=== PATIENT | male | born 1970 | race Caucasian/White ===

== ENCOUNTER 2025-08-30 22:43 | Emergency (ER) | payer OTHER, SELFPAY ==
--- NOTE | ~2025-08-30 | XR_ITS ---
EXAMINATION: XR chest 2V DATE: 08/30/2025 23:34 INDICATION: Chest pressure and congestion TECHNIQUE: PA and lateral views of the chest were obtained. COMPARISON: Chest CT dated 05/12/07 FINDINGS: The lungs are clear with no focal airspace opacities, pulmonary edema, pleural effusion or pneumothorax. The cardiomediastinal silhouette is normal. Moderate thoracic spondylosis. IMPRESSION: 1. No acute cardiopulmonary disease. Reviewed, dictated and finalized at location A. ETRICS SPECIALIST
--- OUTSIDE RECORDS SUMMARY | 2025-08-30 22:46 | XMS_ITS | Encounter Summary ---
Author Organization [facility] Address 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
--- OUTSIDE RECORDS SUMMARY | 2025-08-30 22:46 | XMS_ITS | Encounter Summary ---
Author Organization [facility] Address 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
--- OUTSIDE RECORDS SUMMARY | 2025-08-30 22:46 | XMS_ITS | Encounter Summary ---
Author Organization [facility] Address 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
--- OUTSIDE RECORDS SUMMARY | 2025-08-30 22:46 | XMS_ITS | Encounter Summary ---
Author Organization [facility] Address 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
--- OUTSIDE RECORDS SUMMARY | 2025-08-30 22:46 | XMS_ITS | Encounter Summary ---
Author Organization [facility] Address 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
--- OUTSIDE RECORDS SUMMARY | 2025-08-30 22:46 | XMS_ITS | Clinical Summary ---
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
--- OUTSIDE RECORDS SUMMARY | 2025-08-30 22:46 | XMS_ITS | Encounter Summary ---
Author Organization [facility] Address 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
--- OUTSIDE RECORDS SUMMARY | 2025-08-30 22:46 | XMS_ITS | Encounter Summary ---
Author Organization [facility] Address 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
--- OUTSIDE RECORDS SUMMARY | 2025-08-30 22:46 | XMS_ITS | Encounter Summary ---
Author Organization [facility] Address 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
--- OUTSIDE RECORDS SUMMARY | 2025-08-30 22:46 | XMS_ITS | Encounter Summary ---
Author Organization [facility] Address [address] [place] [address] Care Team Providers Care Locksmith Name Role Phone Unavailable Primary Care Provider Unavailabl e Encounter Details Date Type Department Care Team (Late st Contact Info) Description 08/12/1998 Outpatient Historical [facility] Primary Care - [address] [place] [address] Severiano Hdez DO Social History Tobacco Use Types Packs/Day Years Used Date Smoking Tobacco: Never Assessed Sex and Gender Information Value Date Recorded Sex Assigned at Not on file Legal Sex Male 4:45 AM SIGN HANGER Gender Identity Not on file Sexual Orientation Not on file documented as of this encounter Plan of Treatment Not on file documented as of this encounter Visit Diagnoses Not on filedocumented in this encounter
--- OUTSIDE RECORDS SUMMARY | 2025-08-30 22:46 | XMS_ITS | Encounter Summary ---
Author Organization [facility] Address 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
--- OUTSIDE RECORDS SUMMARY | 2025-08-30 22:46 | XMS_ITS | Encounter Summary ---
Author Organization [facility] Address 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
--- OUTSIDE RECORDS SUMMARY | 2025-08-30 22:46 | XMS_ITS | Encounter Summary ---
Author Organization [facility] Address 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
--- OUTSIDE RECORDS SUMMARY | 2025-08-30 22:46 | XMS_ITS | Encounter Summary ---
Author Organization [facility] Address 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
--- OUTSIDE RECORDS SUMMARY | 2025-08-30 22:46 | XMS_ITS | Encounter Summary ---
Author Organization [facility] Address 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
--- OUTSIDE RECORDS SUMMARY | 2025-08-30 22:46 | XMS_ITS | Encounter Summary ---
Author Organization [facility] Address [address] [place] [address] Care Team Providers Care Soap Maker Name Role Phone Unavailable Primary Care Provider Unavailabl e Encounter Details Date Type Department Care Team (Late st Contact Info) Description 06/15/[address] 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
--- NOTE | 2025-08-30 22:49 | ECG_ITS ---
Test Date: 2025-08-30 23:07:17 Measurements Intervals [place] Rate: 58 P: 61 W[place]: 195 QRS: 5 QRSD: 93 T: 69 QT: 412 QTc: 406 Interpretive Statements SINUS BRADYCARDIA DELAYED PRECORDIAL R/S TRANSITION BORDERLINE ECG No previous ECG available for comparison Electronically Signed On 08-31-2025 08:54:49 POST TRONIC MACHINE OPERATOR by Wally Sanford D.O.
[2025-08-30 23:02] VITALS: BP 144/89; PULSE 60; RESP 16; TEMP 36.4; O2SAT 100
[2025-08-31 01:52] LABS: Hematocrit 45.3 % (42.0-52.0); Hemoglobin 15.6 g/dL (14.0-18.0); Immature Granulocyte Percent A 0.3 % (0-0.5); Lymphocytes Absolute Auto 2.10 K/mm3 (0.9-3.2); Mean Corpuscular HGB Conc 34.4 g/dl (32-36); Mean Corpuscular Hemoglobin 33.4 pg (26-34); Mean Corpuscular Volume 97.0 fl (80-100); Nucleated Red Blood Cells Absolute Auto 0.000 K/mm3 (0.0-0.012); Nucleated Red Blood Cells Perc 0.0 % (0.0-0.2); Platelet Count Result 204 k/mm3 (150-375); Red Blood Count 4.67 M/mm3 (4.6-6.20); White Blood Count 7.7 K/mm3 (4.5-10.0)
[2025-08-31 02:01] LABS: Alanine Aminotransferase 15 U/L (6-50); Albumin Level 4.5 g/dL (3.5-5.1); Alkaline Phosphatase 58 U/L (38-126); Anion Gap 10 mmol/L (4-12); Aspartate Amino Transferase 22 U/L (17-59); Bilirubin,Total 0.7 mg/dL (0.2-1.3); Blood Urea Nitrogen 8 mg/dL (9-20); Calcium 9.2 mg/dL (8.4-10.2); Carbon Dioxide 21 mmol/L (22-30); Chloride 106 mmol/L (98-107); Estimated CRCL calculation 114 ml/min; Estimated Glomerular Filt Rate > 60; Glucose 198 mg/dL (65-110); Potassium 3.9 mmol/L (3.4-5.0); Sodium 137 mmol/L (137-145); Total Protein 7.7 g/dL (6.3-8.2)
[2025-08-31 02:12] LABS: Troponin I < 0.012 ng/mL (0.000-0.034)
--- NOTE | 2025-08-31 02:14 | ED.SOB ---
HPI - SOB/Dyspnea General Chief Complaint: Shortness of Breath/Dyspnea Stated Complaint: chest pressure, congestion Time Seen by Provider: 08/31/25 02:03 Source: patient and other Mode of arrival: ambulatory Limitations: no limitations History of Present Illness HPI Narrative: Patient presents with report of chest pressure and chest congestion. Was initially reported that he has been short of breath for 1 week although he states that he only became short of breath today. He has been experiencing 8/10 epigastric pain although he states he has a history of a hiatal hernia and attributed to that. He has had a cough that has become productive although he still feels like he can not get all of the phlegm out. He states he previously had a walking pneumonia and believes it is the same. he has not had any fevers or chills. Denies any edema. He does smoke 1-1/2 pack per day cigarettes but denies any underlying respiratory diagnoses or cardiac conditions. Does not currently have a primary care physician. Cardiac risk factors HTN: No HLD: No DM: No Obese: No Smoker: Yes Personal history VA/TIA/CVA: No Fam Hx VA in first degree relative <65yo: Yes (father <65yo) Related Data Allergies Allergy/AdvReac Type Severity Reaction Status Date / Time Penicillins Allergy Mild Hives Verified 08/31/25 02:43 [facility] Past Medical History Medical History Walking pneumonia Hiatal hernia Family History Family History (Updated 08/31/25 @ 05:06 by Sima Michelle MD) Father Acute myocardial infarction <65yo Social History Social History Smoking packs per day: 1.5 Smoking cigarettes per day: 30.0 Smoking status: Current every day smoker Exam Narrative: GENERAL: Well-appearing, well-nourished, and in no acute distress. HEAD: Normocephalic, atraumatic. EYES: Non injected, non icteric ENT: Nares clear, no rhinorrhea or epistaxis. Gross auditory acuity intact. NECK: Supple. No meningismus. CHEST: Speaking in full sentences. No respiratory distress. lungs clear to auscultation bilaterally without appreciable crackles wheezes or consolidation HEART: Regular rate and rhythm though occasional bradycardia ABDOMEN: Soft, nondistended. No rigidity or guarding. Not peritoneal EXTREMITIES: Normal range of motion. No lower extremity edema. SKIN: Warm, dry, no rash. NEURO: No focal deficits. Alert and oriented. Answering questions. Following commands. Normal speech without aphasia or dysarthria. PSYCH: Normal mood and affect. Course Vital Signs Vital signs: Vital Signs Temperature 97.5 F L 08/30/25 23:02 Pulse Rate 60 08/30/25 23:02 Respiratory Rate 16 08/30/25 23:02 Blood Pressure 144/89 H 08/30/25 23:02 Pulse Oximetry 100 08/30/25 23:02 Oxygen Delivery Room Air 08/30/25 23:02 Temperature 98.0 F 08/31/25 05:43 Pulse Rate 64 08/31/25 05:43 Respiratory Rate 12 08/31/25 05:43 Blood Pressure 175/93 H 08/31/25 05:43 Pulse Oximetry 98 08/31/25 05:43 Oxygen Delivery Room Air 08/31/25 02:43 MDM MDM Narrative Medical decision making narrative: Patient presents with chest pressure, congestion, and started feeling short of breath today. Also epigastric abdominal pain. In the emergency department he is afebrile with vital signs that are acceptable, mild hypertension. Troponin within normal limits. Hyperglycemia is without anion gap or marked acidosis. CBC unremarkable without leukocytosis, anemia, thrombocytopenia/thrombocytosis. Viral swab negative. HEART SCORE History 2 highly suspicious 1 moderately suspicious 0 slightly suspicious History score [address] depression/elevation not due to LBBB, LVH, or digoxin [address] depression but LBBB, LVH, nonspecific repolarization changes 0 normal ECG score 0 Age 2 >/= 65 1 45-64 0 <45 Age score 1 Risk factors (HTN, hypercholesterolemia, DM, obesity with BMI >30, current smoker or cessation </=3mo), positive fam hx with parent or sibling with CVD before age 65, atherosclerotic disease (prior VA, PCI/CABG, CVA/TIA, or peripheral arterial disease) 2 >/= 3 risk factors or history of atherosclerotic dz 1 - 1-2 risk factors 0 no known risk factors Risk factor score 1 Initial Troponin 2 >3 times normal limit 1 1-3 times normal limit 0 less than or equal to normal limit Troponin score 0 Total HEART Score 2 Tessalon perles, ASA, and Mucinex ordered. Lipase normal. Repeat troponin within normal limits. Otherwise stable for discharge but advised follow up with PCP and cardiology. Provided referral contact information for both. Discharged with prescriptions for OTC analgesics, Cepacol lozenges, and Tessalon perles. Differential Diagnosis Differential Diagnosis: pancreatitis, ACS, pneumonia, bronchitis; acute viral syndrome; gastritis; biliary pathology; pneumothorax Lab Data MDM Lab Attestation statement: I personally reviewed the patient's lab results. 08/31/25 01:44 08/31/25 01:44 Labs: Lab Results 08/31/25 08/31/25 Range/Units 01:44 04:47 WBC 7.7 (4.5-10.0) K/mm3 RBC 4.67 (4.6-6.20) M/mm3 Hgb 15.6 (14.0-18.0) g/dL Hct 45.3 (42.0-52.0) % MCV 97.0 (80-100) fl MCH 33.4 (26-34) pg MCHC 34.4 (32-36) g/dl RDW 13.2 (11.5-14.5) % Plt Count 204 (150-375) k/mm3 MPV 8.9 (7.4-10.4) fl Immature Gran % (Auto) 0.3 (0-0.5) % Neut % (Auto) 63.7 (45.5-73.1) % Lymph % (Auto) 27.1 (18.3-44.2) % [place] % (Auto) 5.7 (2.6-8.5) % Eos % (Auto) 2.8 (0-4.4) % Baso % (Auto) 0.4 (0.2-1.2) % Lymph # (Auto) 2.10 (0.9-3.2) K/mm3 [place] # (Auto) 0.4 (0.1-0.6) K/mm3 Eos # (Auto) 0.2 (0-0.3) K/mm3 Baso # (Auto) 0.0 (0.0-0.1) K/mm3 Abs Immat Gran (auto) 0.02 (0.00-0.031) K/mm3 Absolute Neuts (auto) 4.9 (1.3-6.7) K/mm3 Absolute Nucleated RBC 0.000 (0.0-0.012) K/mm3 Nucleated RBC % 0.0 (0.0-0.2) % Sodium 137 (137-145) mmol/L Potassium 3.9 (3.4-5.0) mmol/L Chloride 106 (98-107) mmol/L Carbon Dioxide 21 L (22-30) mmol/L Anion Gap 10 (4-12) mmol/L BUN 8 L (9-20) mg/dL Creatinine 0.68 L (0.7-1.3) mg/dL Estim Creat Clear Calc 114 ml/min Estimated GFR > 60 (59 - ) Glucose 198 H (65-110) mg/dL Calcium 9.2 (8.4-10.2) mg/dL Total Bilirubin 0.7 (0.2-1.3) mg/dL AST 22 (17-59) U/L ALT 15 (6-50) U/L Alkaline Phosphatase 58 (38-126) U/L Troponin I < 0.012 < 0.012 (0.000-0.034) ng/mL Total Protein 7.7 (6.3-8.2) g/dL Albumin 4.5 (3.5-5.1) g/dL Lipase 110 (23-300) U/L Influenza A (RT-PCR) Negative (Negative) Influenza B (RT-PCR) Negative (Negative) RSV (RT-PCR) Negative (Negative) SARS-CoV-2 RNA (RT-PCR) Negative (Negative) Imaging Data Attestation: I personally reviewed and interpreted this imaging study as follows: My impression: Chest x-ray negative for acute intrathoracic process on my independent interpretation Radiologist's impression: ITS Impressions Chest X-Ray 08/31/25 09:05 IMPRESSION: 1. No acute cardiopulmonary disease. CXR stat rad: Lungs are clear. Heart size is normal. No pleural effusions. ECG Data EKG #1: Attestation: I personally reviewed and interpreted this ECG as follows: ECG completion date: 08/30/25 ECG completion time: 23:07 Interpretation: Sinus bradycardia at a rate of 50 beats per minute. IA interval 195. QRS 93. QT/ QTC 412/406. No T-wave inversions. No ST segment elevation or marked depressions. EKG #2: Attestation: I personally reviewed and interpreted this ECG as follows: ECG completion date: 08/31/25 ECG completion time: 04:43 Prior ECG tracings: available for review Interpretation: sinus bradycardia rate of 56 beats per minute. IA interval is borderline prolonged at 200 milliseconds. QRS 94. QT /QTC 414/405. Good R-wave progression across the precordial leads. No T-wave inversion. No marked ST segment elevation or depression. Normal axis. Discharge Plan Discharge Clinical Impression: Chest pressure, Shortness of breath, Chest congestion, Epigastric abdominal pain, Bronchitis Patient Disposition: Home Condition: Stable Instructions: Antibiotic Form, Chest Pain (DC), Acute Bronchitis (ED), Epigastric Pain (ED), Shortness of Breath (ED) Additional Instructions: The name of a primary care physician is listed below for follow-up/to establish with someone locally. Your EKG, chest x-ray, and labs were reassuring though given your age/risk factors, should also obtain further cardiology workup in the outpatient setting. A PCP may be able to help coordinate some of this but the name of a doll maker is listed below as well. No evidence of pneumonia but based on your symptoms we call this bronchitis. Bronchitis is often viral however you tested negative for COVID, influenza a , influenza B, and RSV. Rest and supportive care are the main stays of treatment. Drink plenty of fluids. Acetaminophen/Tylenol (maximum 4000 mg per day) is safe to take with NSAIDs (ibuprofen/Motrin) for pain relief. The Tessalon Perles may help with the cough as can the capacol lozgenges. No role for antibiotics, steroids, or an inhaler. Patient Language: Sinhala Prescriptions: New ibuprofen 600 mg tablet 600 mg PO TID PRN (Reason: pain) Qty: 30 0RF acetaminophen 500 mg capsule 1,000 mg PO Q6H PRN (Reason: pain) Qty: 30 0RF benzonatate 100 mg capsule 100 mg PO BID PRN (Reason: cough) Qty: 20 0RF Cepacol Sore Throat-Cough 5-7.5 mg lozenge 1 jeana PO Q4H PRN (Reason: cough) Qty: 16 0RF Follow-up/Referrals: Dread Lucas MD [Physician, Cardiology] Rip Ames MD [Physician, Family Practice] PHYSICIAN,EMERGENCY SERVICES PROFESSIONAL [Primary Care Provider, Internal Medicine] Stand Alone Forms: Work/School Release IP Time of Disposition: 05:24
[2025-08-31 02:26] LABS: Influenza A QL RT-PCR Negative (Negative); Influenza B QL RT-PCR Negative (Negative); RSV RNA, RT-PCR Negative (Negative); SARS-CoV-2 RNA PCR Negative (Negative)
[2025-08-31 02:32] VITALS: BP 158/83; PULSE 59; RESP 15; O2SAT 99
[2025-08-31 02:43] VITALS: O2SAT 100
[2025-08-31] MEDS: ASPIRIN 81 MG CHEWABLE TABLET 324 MG PO (02:57)
[2025-08-31] MEDS: BENZONATATE 100 MG CAPSULE PO (02:57)
[2025-08-31 03:18] LABS: Lipase 110 U/L (23-300)
--- NOTE | 2025-08-31 04:39 | ECG_ITS ---
Test Date: 2025-08-31 04:43:36 Measurements Intervals [place] Rate: 56 P: 58 CA: 200 QRS: 20 QRSD: 94 T: 64 QT: 414 QTc: 400 Interpretive Statements SINUS BRADYCARDIA BASELINE ARTIFACT- I, II, III BORDERLINE ECG Compared to ECG 08/30/2025 23:07:17 No significant changes Electronically Signed On 08-31-2025 09:05:59 [employer] OPER[employer] by Wally Sanford D.O.
[2025-08-31] MEDS: guaiFENesin 600 MG/DEXTROMETHORPHAN 30 MG SR TAB 12 HR 1 TAB PO (04:50)
[2025-08-31 05:18] LABS: Troponin I < 0.012 ng/mL (0.000-0.034)
[2025-08-31 05:43] VITALS: BP 175/93; PULSE 64; RESP 12; TEMP 36.7; O2SAT 98
== END 2025-08-31 05:58 | disposition home or self-care (01) ==
PROVIDERS: Emergency Provider Student in an Organized Health Care Education/Training Program
DX: R07.89 Other chest pain (principal); R06.02 Shortness of breath; F17.210 Nicotine dependence, cigarettes, uncomplicated; R09.89 Other specified symptoms and signs involving the circulatory and respiratory systems; J40 Bronchitis, not specified as acute or chronic; Z20.822 Contact with and (suspected) exposure to COVID-19
CPT/HCPCS: 36415; 71046; 80053; 83690; 84484; 85025; 87637; 93005; 99284; A9270